=== PATIENT | male | born 2000 ===

== ENCOUNTER → 2025-01-08 | Outpatient (REF) | payer OTHER ==
[2025-01-08 11:40] LABS: SEMEN APPEARANCE OPAQUE (OPAQUE); SEMEN VISCOSITY LIQUID (LIQUID); SEMEN VOLUME 3.8 ml (2.0-5.0)
[2025-01-08 11:41] LABS: SPERM CONCENTRATION 56.0 M/ml (>=15.0); TOTAL PROGRESSIVE SPERM 129.2 M/Ejac.; WBC CONCENTRATION >1 M/ml (<=1 M/ml)
== END ==
LOC: M LAB REF 10:57
PROVIDERS: ATTEND Physician Assistant
DX: N46.9 Male infertility, unspecified (principal)